=== PATIENT | male | born 1955 | race Caucasian/White ===

== ENCOUNTER → 2021-07-05 10:57 | Outpatient (BNVA) | payer OTHER, SELFPAY | PROVIDERS: Family Provider Family Medicine; PCP Family Medicine; Referring Provider Nurse Practitioner; Visit Provider Surgery | DX: Z12.11 Encounter for screening for malignant neoplasm of colon (principal) | CPT/HCPCS: 99203 ==

== ENCOUNTER 2021-08-31 08:30 | Day surgery (SDC) | payer OTHER, SELFPAY ==
[2021-08-30 09:01] VITALS: BMI 25.0
[2021-08-31 08:49] VITALS: BP 127/77; PULSE 69; RESP 16; TEMP 36.2; O2SAT 96
[2021-08-31] MEDS: sodium chloride 0.9% 1,000 ML 30 ML IV (08:58)
--- NOTE | 2021-08-31 09:21 | ANES.PREANE2 ---
Pre-Anesthetic Assessment Height/Weight: Height 1.68 m Weight 70.307 kg Temp Pulse Resp BP Pulse Ox 97.1 F L 69 16 127/77 96 08/31/21 08:49 08/31/21 08:49 08/31/21 08:49 08/31/21 08:49 08/31/21 08:49 Preop Diagnosis: diagnostic Operation Date: 08/31/21 10:00 Proposed Procedures p Colonoscopy 98415/Z12.11(Not Applicable) - Marco Bunn MD Familial anesthetic complications: None Was Beta Dede taken within 24 hours: N/A Was Clonidine taken within 24 hours: N/A Last intake: Intake Last Liquid Date 08/31/21 Last Liquid Time 01:00 Last Solid Date 08/29/21 Last Solid Time 19:00 Social Tobacco and No alcohol Exam alert, oriented x 3, clear to auscultation bilaterally and regular rate & rhythm Airway Mallampati: Class II Dentition: other (missing teeth) Anesthetic Plan ASA status: 2 Anesthesia: MAC Risk of > 500 ml blood loss (7ml/kg in children): No Medications/Allergies Home Medications Medication Instructions Recorded Confirmed Last Taken Type naproxen sodium 220 mg tablet 220 mg PO BID PRN 09/15/19 08/31/21 08/29/21 History (Flanax (naproxen)) B-complex with vitamin C 1 tab PO DAILY 08/30/21 08/31/21 08/29/21 History ascorbic acid (vitamin C) 1,000 mg 1 cap PO DAILY 08/30/21 08/31/21 08/29/21 History capsule,extended release cholecalciferol (vitamin D3) 25 25 mcg PO DAILY 08/30/21 08/31/21 08/29/21 History mcg (1,000 unit) capsule (Vitamin D3) cranberry extract-vitamin C 250 1 cap PO DAILY 08/30/21 08/31/21 08/29/21 History mg-60 mg capsule ginkgo biloba 40 mg tablet 40 mg PO DAILY 08/30/21 08/31/21 08/29/21 History ginseng 500 mg capsule 2,000 mg PO DAILY 08/30/21 08/31/21 08/29/21 History ibuprofen 200 mg tablet 600 mg PO Q6H PRN 08/30/21 08/31/21 08/31/21 History multivit with [id number]-omega 1 cap PO DAILY 08/30/21 08/31/21 08/29/21 History 3,6,9 no.3 400 mcg-300 mcg capsule saw palmetto 1,000 mg capsule 1,000 mg PO DAILY 08/30/21 08/31/21 08/29/21 History turmeric root extract 1,053 mg 1,076 mg PO DAILY 08/30/21 08/31/21 08/29/21 History tablet vitamin E 400 unit capsule 400 unit PO DAILY 08/30/21 08/31/21 08/29/21 History Allergies Allergy/AdvReac Type Severity Reaction Status Date / Time No Known Allergies Allergy Verified 08/31/21 08:48 Current Medications Generic Name Dose Route Start Last Admin Trade Name Freq PRN Reason Stop Dose Admin Sodium Chloride 1,000 mls @ 30 mls/hr 08/31/21 08:45 08/31/21 08:58 Sodium Chloride 0.9% IV 09/01/21 08:44 30 mls/hr .Q24H KO Administration PFSH Anesthesia Medical History Skull fractures with plate Surgical History History of appendectomy History of cranial surgery 1979 - intracranial bleed Social History Smoking and tobacco status: current every day smoker cigarettes Alcohol intake: current Alcohol intake frequency: holidays/special occasions only Data Anesthesia Cardiac Studies: No Data to Display
--- NOTE | 2021-08-31 09:40 | W.PM.OPSFHP ---
Same Day Surgery H&P Indication for Procedure/HPI DATE OF PROCEDURE: August 31, 2021 CHIEF COMPLAINT/INDICATIONFOR SURGICAL PROCEDURE: Screening colonoscopy PREOP DIAGNOSIS: diagnostic PLANNED PROCEDURE: Operation Date: 08/31/21 10:00 Proposed Procedures p Colonoscopy 86805/Z12.11(Not Applicable) - Marco Bunn MD Medications/Allergies* Home Medications Medication Instructions Recorded Confirmed Type naproxen sodium 220 mg tablet 220 mg PO BID PRN 09/15/19 08/31/21 History (Flanax (naproxen)) B-complex with vitamin C 1 tab PO DAILY 08/30/21 08/31/21 History ascorbic acid (vitamin C) 1,000 mg 1 cap PO DAILY 08/30/21 08/31/21 History capsule,extended release cholecalciferol (vitamin D3) 25 25 mcg PO DAILY 08/30/21 08/31/21 History mcg (1,000 unit) capsule (Vitamin D3) cranberry extract-vitamin C 250 1 cap PO DAILY 08/30/21 08/31/21 History mg-60 mg capsule ginkgo biloba 40 mg tablet 40 mg PO DAILY 08/30/21 08/31/21 History ginseng 500 mg capsule 2,000 mg PO DAILY 08/30/21 08/31/21 History ibuprofen 200 mg tablet 600 mg PO Q6H PRN 08/30/21 08/31/21 History multivit with [id number]-HM-[id number]-omega 1 cap PO DAILY 08/30/21 08/31/21 History 3,6,9 no.3 400 mcg-300 mcg capsule saw palmetto 1,000 mg capsule 1,000 mg PO DAILY 08/30/21 08/31/21 History turmeric root extract 1,053 mg 1,076 mg PO DAILY 08/30/21 08/31/21 History tablet vitamin E 400 unit capsule 400 unit PO DAILY 08/30/21 08/31/21 History Allergies/Adverse Reactions Allergy/AdvReac Type Severity Reaction Status Date / Time No Known Allergies Allergy Verified 08/31/21 08:48 Current Medications: Generic Name Dose Route Start Last Admin Trade Name Freq PRN Reason Stop Dose Admin Sodium Chloride 1,000 mls @ 30 mls/hr 08/31/21 08:45 08/31/21 08:58 Sodium Chloride 0.9% IV 09/01/21 08:44 30 mls/hr .Q24H KO Administration Pertinent History/Comorbid Conditions* Medical History (Updated 07/05/21 @ 11:11 by Marco Bunn MD) Skull fractures with plate Surgical History (Updated 07/05/21 @ 11:11 by Marco Bunn MD) History of appendectomy History of cranial surgery 1979 - intracranial bleed Social History Smoking and tobacco status: current every day smoker cigarettes Alcohol intake: current Alcohol intake frequency: holidays/special occasions only Pertinent Exam Findings alert, oriented x 3 and regular rate & rhythm Recommendations Surgery/Procedure today Coding Level of Care Code Acute Gleason Operator for Larisa Padilla
[2021-08-31 10:00] VITALS: BP 113/74; PULSE 66; RESP 16; TEMP 36.1; O2SAT 99
[2021-08-31 10:15] VITALS: BP 115/68; PULSE 62; RESP 18; O2SAT 99
--- NOTE | 2021-08-31 12:53 | ANE.PACU2 ---
Inpatient post-anesthesia follow up: Airway intact: Yes Vital signs: Temperature 97.0 F Pulse Rate 62 Respiratory Rate 18 Blood Pressure 115/68 Pulse Oximetry 99 Oxygen Delivery Me thod Room Air Oxygen Flow Rate 3 Fraction of Inspir ed Oxygen Hydration adequate: Yes Nausea and vomiting: No Pain level: 1 Mental status: Baseline
== END 2021-08-31 10:27 | disposition home or self-care (01) ==
PROVIDERS: PCP Family Medicine; Visit Provider Surgery
PROC: 0DJD8ZZ Inspection of Lower Intestinal Tract, Via Natural or Artificial Opening Endoscopic (ICD-10-PCS; CPT 45378; principal; 2021-08-31 10:00)
DX: Z12.11 Encounter for screening for malignant neoplasm of colon (principal); F17.210 Nicotine dependence, cigarettes, uncomplicated; K57.30 Diverticulosis of large intestine without perforation or abscess without bleeding; K64.8 Other hemorrhoids
CPT/HCPCS: 45378; J2704; J7030